=== PATIENT | male | born 1940 | race Caucasian/White ===

== ENCOUNTER 2022-01-10 09:18 | Outpatient (CLI) | payer BC, MEDICARE ==
[~2022-01-10 09:18] MED LIST: Magnevist 469MG/ML 20 ML VIAL ONE
== END 2022-01-10 09:19 | disposition home or self-care (01) ==
LOC: CSHMRI 09:18
PROVIDERS: ATTEND Family Medicine
DX: R27.0 Ataxia, unspecified (principal); G31.89 Other specified degenerative diseases of nervous system; I67.89 Other cerebrovascular disease
CPT/HCPCS: 70553; 82565

== ENCOUNTER 2022-03-07 13:02 | Outpatient (CLI) | payer BC | END 2022-03-07 13:03 | disposition home or self-care (01) | LOC: CSHMRI 13:02 | PROVIDERS: ATTEND Psychiatry & Neurology Neurology | DX: I63.539 Cerebral infarction due to unspecified occlusion or stenosis of unspecified posterior cerebral artery (principal) | CPT/HCPCS: 70544; 70549; 82565; A9579 ==

== ENCOUNTER → 2022-07-07 | Day surgery (SDC) | payer BC, MEDICARE | LOC: CSHSDC 07:27 | PROVIDERS: ATTEND Specialist | DX: I63.50 Cerebral infarction due to unspecified occlusion or stenosis of unspecified cerebral artery (principal); Z86.718 Personal history of other venous thrombosis and embolism; Z91.041 Radiographic dye allergy status; Z79.01 Long term (current) use of anticoagulants | CPT/HCPCS: 93005; 93010; 93312; J2704 ==

== ENCOUNTER 2024-07-14 11:20 | Outpatient (CLI) | payer MEDICARE | END 2024-07-14 11:21 | disposition home or self-care (01) | LOC: CSHWCC 11:20 | PROVIDERS: ATTEND Nurse Practitioner Family | DX: S81.812D Laceration without foreign body, left lower leg, subsequent encounter (principal); S81.811D Laceration without foreign body, right lower leg, subsequent encounter; I87.333 Chronic venous hypertension (idiopathic) with ulcer and inflammation of bilateral lower extremity; L97.929 Non-pressure chronic ulcer of unspecified part of left lower leg with unspecified severity; L97.919 Non-pressure chronic ulcer of unspecified part of right lower leg with unspecified severity | CPT/HCPCS: 11042; 99213; G0463 ==

== ENCOUNTER 2024-07-21 15:04 | Outpatient (CLI) | payer MEDICARE | END 2024-07-21 15:05 | disposition home or self-care (01) | LOC: CSHWCC 15:04 | PROVIDERS: ATTEND Nurse Practitioner Family | DX: S81.811D Laceration without foreign body, right lower leg, subsequent encounter (principal); S81.812D Laceration without foreign body, left lower leg, subsequent encounter; I87.333 Chronic venous hypertension (idiopathic) with ulcer and inflammation of bilateral lower extremity | CPT/HCPCS: 11042; G0463; 99213 ==

== ENCOUNTER 2024-07-28 08:55 | Outpatient (CLI) | payer MEDICARE | END 2024-07-28 08:56 | disposition home or self-care (01) | LOC: CSHWCC 08:55 | PROVIDERS: ATTEND Nurse Practitioner Family | DX: I87.333 Chronic venous hypertension (idiopathic) with ulcer and inflammation of bilateral lower extremity (principal); S81.812D Laceration without foreign body, left lower leg, subsequent encounter; S81.811D Laceration without foreign body, right lower leg, subsequent encounter | CPT/HCPCS: 11042 ==

== ENCOUNTER 2024-08-04 11:30 | Outpatient (CLI) | payer MEDICARE | END 2024-08-04 11:31 | disposition home or self-care (01) | LOC: CSHWCC 11:30 | PROVIDERS: ATTEND Nurse Practitioner Family | DX: S81.811D Laceration without foreign body, right lower leg, subsequent encounter (principal); S81.812D Laceration without foreign body, left lower leg, subsequent encounter; I87.333 Chronic venous hypertension (idiopathic) with ulcer and inflammation of bilateral lower extremity; L97.919 Non-pressure chronic ulcer of unspecified part of right lower leg with unspecified severity; L97.929 Non-pressure chronic ulcer of unspecified part of left lower leg with unspecified severity | CPT/HCPCS: 11042 ==

== ENCOUNTER 2024-08-11 12:36 | Outpatient (CLI) | payer MEDICARE | END 2024-08-11 12:37 | disposition home or self-care (01) | LOC: CSHWCC 12:36 | PROVIDERS: ATTEND Nurse Practitioner Family | DX: I87.333 Chronic venous hypertension (idiopathic) with ulcer and inflammation of bilateral lower extremity (principal); L97.222 Non-pressure chronic ulcer of left calf with fat layer exposed; L97.212 Non-pressure chronic ulcer of right calf with fat layer exposed; L97.322 Non-pressure chronic ulcer of left ankle with fat layer exposed | CPT/HCPCS: 11042; 97597; G0463; 99212 ==

== ENCOUNTER 2024-08-18 09:02 | Outpatient (CLI) | payer MEDICARE | END 2024-08-18 09:03 | disposition home or self-care (01) | LOC: CSHWCC 09:02 | PROVIDERS: ATTEND Family Medicine | DX: I87.333 Chronic venous hypertension (idiopathic) with ulcer and inflammation of bilateral lower extremity (principal); L97.222 Non-pressure chronic ulcer of left calf with fat layer exposed; L97.212 Non-pressure chronic ulcer of right calf with fat layer exposed; L97.322 Non-pressure chronic ulcer of left ankle with fat layer exposed; L97.312 Non-pressure chronic ulcer of right ankle with fat layer exposed | CPT/HCPCS: 11042; 97597 ==

== ENCOUNTER 2024-08-25 10:02 | Outpatient (CLI) | payer MEDICARE | END 2024-08-25 10:03 | disposition home or self-care (01) | LOC: CSHWCC 10:02 | PROVIDERS: ATTEND Nurse Practitioner Family | DX: I87.333 Chronic venous hypertension (idiopathic) with ulcer and inflammation of bilateral lower extremity (principal); L97.212 Non-pressure chronic ulcer of right calf with fat layer exposed; L97.222 Non-pressure chronic ulcer of left calf with fat layer exposed | CPT/HCPCS: 11042 ==

== ENCOUNTER 2024-09-09 09:28 | Outpatient (CLI) | payer MEDICARE | END 2024-09-09 09:29 | disposition home or self-care (01) | LOC: CSHWCC 09:28 | PROVIDERS: ATTEND Nurse Practitioner Family | DX: I87.333 Chronic venous hypertension (idiopathic) with ulcer and inflammation of bilateral lower extremity (principal); L97.212 Non-pressure chronic ulcer of right calf with fat layer exposed | CPT/HCPCS: 11042 ==

== ENCOUNTER 2024-09-17 10:09 | Outpatient (CLI) | payer MEDICARE | END 2024-09-17 10:10 | disposition home or self-care (01) | LOC: CSHWCC 10:09 | PROVIDERS: ATTEND Nurse Practitioner Family | DX: I87.333 Chronic venous hypertension (idiopathic) with ulcer and inflammation of bilateral lower extremity (principal); L97.212 Non-pressure chronic ulcer of right calf with fat layer exposed; L97.222 Non-pressure chronic ulcer of left calf with fat layer exposed ==

== ENCOUNTER 2024-09-23 10:01 | Outpatient (CLI) | payer MEDICARE | END 2024-09-23 10:02 | disposition home or self-care (01) | LOC: CSHWCC 10:01 | PROVIDERS: ATTEND Nurse Practitioner Family | DX: I87.333 Chronic venous hypertension (idiopathic) with ulcer and inflammation of bilateral lower extremity (principal); L97.212 Non-pressure chronic ulcer of right calf with fat layer exposed | CPT/HCPCS: 11042 ==

== ENCOUNTER 2024-10-02 14:41 | Outpatient (CLI) | payer MEDICARE | END 2024-10-02 14:42 | disposition home or self-care (01) | LOC: CSHWCC 14:41 | PROVIDERS: ATTEND Nurse Practitioner Family | DX: I87.333 Chronic venous hypertension (idiopathic) with ulcer and inflammation of bilateral lower extremity (principal); L97.212 Non-pressure chronic ulcer of right calf with fat layer exposed; L97.929 Non-pressure chronic ulcer of unspecified part of left lower leg with unspecified severity | CPT/HCPCS: 99213; G0463 ==

== ENCOUNTER 2024-10-16 14:07 | Outpatient (CLI) | payer MEDICARE | END 2024-10-16 14:08 | disposition home or self-care (01) | LOC: CSHWCC 14:07 | PROVIDERS: ATTEND Nurse Practitioner Family | DX: Z87.2 Personal history of diseases of the skin and subcutaneous tissue (principal) | CPT/HCPCS: 99212; G0463 ==

== ENCOUNTER 2025-04-07 08:10 | Outpatient (CLI) | payer MEDICARE | END 2025-04-07 08:11 | disposition home or self-care (01) | LOC: CSHWCC 08:10 | PROVIDERS: ATTEND Nurse Practitioner Family | DX: I87.331 Chronic venous hypertension (idiopathic) with ulcer and inflammation of right lower extremity (principal); L97.311 Non-pressure chronic ulcer of right ankle limited to breakdown of skin | CPT/HCPCS: 99214; G0463 ==

== ENCOUNTER 2025-04-15 08:37 | Outpatient (CLI) | payer MEDICARE | END 2025-04-15 08:38 | disposition home or self-care (01) | LOC: CSHWCC 08:37 | PROVIDERS: ATTEND Nurse Practitioner Family | DX: I87.331 Chronic venous hypertension (idiopathic) with ulcer and inflammation of right lower extremity (principal); L97.311 Non-pressure chronic ulcer of right ankle limited to breakdown of skin; L08.9 Local infection of the skin and subcutaneous tissue, unspecified | CPT/HCPCS: 99212; G0463 ==